=== PATIENT | male | born 1965 | race Caucasian/White ===

== ENCOUNTER 2020-04-07 21:35 | Inpatient (IN) ==
[2020-04-08] MEDS ORDERED: HYDROmorphone 2 MG/1 ML VIAL IV STA (00:32)
[2020-04-08] MEDS ORDERED: ONDANSETRON 4 MG/2 ML VIAL IV STA (00:32)
[2020-04-08] MEDS ORDERED: SODIUM CHLORIDE 0.9% 500 ML IV STA (00:32)
[2020-04-08] MEDS ORDERED: PIPERACILLIN/TAZOBACTAM 3,375 MG in SODIUM CHLORIDE 0.9% 100 ML IV STA (00:32)
[2020-04-08 01:27] LABS: Basophils # 0.1 10*3/uL (0.0-0.2); Basophils % 0.8 % (0.0-0.8); Eosinophils # 0.1 10*3/uL (0.0-0.87); Eosinophils % 1.1 % (0.00-10.9); Hematocrit 34.9 VOL% (42.0-52.0); Hemoglobin 12.7 GM/DL (14.0-18.0); Immature Granulocytes % 4.7 %; Immature Granulocytes Absolute 0.61 #; Lymphocytes # 1.7 10*3/uL (1.4-4.0); Lymphocytes % 13.4 % (21.2-54.2); Mean Corpuscular HGB Conc 36.4 GM/DL (32-36); Mean Corpuscular Volume 83.3 FL (87-102); Mean Platelet Volume 9.1 FL (9.6-12.0); Platelet Count 179 T/CUMM (130-400); Red Blood Count 4.19 MC/CUMM (3.8-5.5); White Blood Count 12.9 T/CUMM (4-12)
[2020-04-08 01:46] LABS: Albumin 2.6 G/DL (3.4-5.0); Bilirubin,Total 1.2 MG/DL (0.2-1.0); Calcium 9.3 MG/DL (8.5-10.1); Osmolality,Calculated 282.1 MOS/KG (273-304); Total Protein 7.2 G/DL (6.4-8.3)
[2020-04-08] MEDS ORDERED: INSULIN REGULAR 100 UNIT/ML SUBCUT STA (01:52)
[2020-04-08 02:59] LABS: Band Neutrophils 6 % (0-10); Eosinophils 1 % (0-10); Lymphocytes 15 % (20-55); Polychromasia Few; Reactive Lymphocytes Few; Segmented Neutrophils 71 % (50-85); Total Cells Counted 100
[2020-04-08 03:00] LABS: Platelet Estimate Normal
[2020-04-08] MEDS ORDERED: ONDANSETRON 4 MG/2 ML VIAL IV PRN ×2 (05:15→09:00)
[2020-04-08] MEDS ORDERED: ACETAMINOPHEN 325 MG TABLET PO PRN (05:15)
[2020-04-08] MEDS ORDERED: GLUCAGON 1 MG VIAL IM PRN (05:15)
[2020-04-08] MEDS ORDERED: PROMETHAZINE 25 MG/1 ML VIAL IM PRN (05:15)
[2020-04-08] MEDS ORDERED: DEXTROSE 50% 25 GM/50 ML VIAL IV PRN (05:15)
[2020-04-08] MEDS: SODIUM CHLORIDE 0.9% 1,000 ML IV SCH ×3 (05:45→22:38)
[2020-04-08] MEDS ORDERED: ROPIVACAINE 0.5% 30 ML VIAL ONE (07:27)
[2020-04-08] MEDS ORDERED: TOBRAMYCIN 80 MG/2 ML VIAL ONE (08:05)
[2020-04-08] MEDS ORDERED: propofoL 200 MG/20 ML VIAL IV ONE (08:43)
[2020-04-08] MEDS ORDERED: LIDOCAINE 2% 5 ML VIAL ONE (08:43)
[2020-04-08] MEDS ORDERED: SEVOFLURANE 1 UNIT/15 MINUTE INH ONE (08:43)
[2020-04-08] MEDS ORDERED: SUCCINYLCHOLINE 200 MG/10 ML VIAL ONE (08:44)
[2020-04-08] MEDS ORDERED: ONDANSETRON 4 MG/2 ML VIAL ONE (08:44)
[2020-04-08] MEDS ORDERED: MIDAZOLAM 2 MG/2 ML VIAL ONE (08:44)
[2020-04-08] MEDS ORDERED: fentaNYL 100 MCG/2 ML VIAL ONE (08:44)
[2020-04-08] MEDS ORDERED: HYDROmorphone 2 MG/1 ML VIAL IV PRN (09:00)
[2020-04-08] MEDS ORDERED: HYDROmorphone 2 MG/1 ML VIAL ONE (09:02)
[2020-04-08] MEDS: VANCOMYCIN INJ 1,000 MG in SODIUM CHLORIDE 0.9% 250 ML IV SCH ×2 (10:18→21:56)
[2020-04-08] MEDS: INSULIN REGULAR 100 UNIT/ML SUBCUT SCH ×3 (11:32→17:47)
[2020-04-08] MEDS: PIPERACILLIN/TAZOBACTAM 3,375 MG in SODIUM CHLORIDE 0.9% 100 ML IV SCH ×2 (11:41→17:47)
[2020-04-08 15:11] LABS: Bilirubin,Urine Negative (Negative); Blood, Urine Negative (Negative); Glucose,Urine (UA) >=500 mg/dL (Negative); Ketones,Urine 5 mg/dL (Negative); Mucus,Urine Occasional /LPF (Occasional); Nitrite,Urine Negative (Negative); Protein,Urine Negative; Squamous Epithelial Cell,Urine Occasional /HPF (0-10); Urine Appearance CLEAR (Clear); Urine Color Yellow (Yellow); Urine Specific Gravity 1.033 (1.001-1.035); WBC,Urine 2 /HPF (0-6)
[2020-04-08 15:21] LABS: RBC,Urine 1 /HPF (0-4)
[2020-04-08] MEDS: glyBURIDE 2.5 MG TABLET PO SCH (17:47)
[2020-04-09] MEDS: INSULIN REGULAR 100 UNIT/ML SUBCUT SCH ×5 (00:23→23:43)
[2020-04-09] MEDS: PIPERACILLIN/TAZOBACTAM 3,375 MG in SODIUM CHLORIDE 0.9% 100 ML IV SCH ×3 (01:14→18:12)
[2020-04-09] MEDS: SODIUM CHLORIDE 0.9% 1,000 ML IV SCH ×3 (05:52→18:11)
[2020-04-09 06:43] LABS: Basophils % 0.1 % (0.0-0.8); Eosinophils # 0.1 10*3/uL (0.0-0.87); Eosinophils % 0.8 % (0.00-10.9); Hematocrit 35.3 VOL% (42.0-52.0); Hemoglobin 12.5 GM/DL (14.0-18.0); Immature Granulocytes % 4.9 %; Immature Granulocytes Absolute 0.69 #; Lymphocytes # 2.2 10*3/uL (1.4-4.0); Lymphocytes % 15.2 % (21.2-54.2); Mean Corpuscular HGB Conc 35.4 GM/DL (32-36); Mean Corpuscular Volume 84.4 FL (87-102); Mean Platelet Volume 8.7 FL (9.6-12.0); Monocytes % 8.5 % (1.7-12.7); Neutrophils % 70.5 % (38.7-73.9); Platelet Count 200 T/CUMM (130-400); Red Blood Count 4.18 MC/CUMM (3.8-5.5); Red Cell Distribution Width 13.2 % (9.3-17.3); White Blood Count 14.2 T/CUMM (4-12)
[2020-04-09 07:02] LABS: Albumin 2.2 G/DL (3.4-5.0); Bilirubin,Total 1.2 MG/DL (0.2-1.0); Osmolality,Calculated 267.2 MOS/KG (273-304); Total Protein 6.8 G/DL (6.4-8.3)
[2020-04-09 07:08] LABS: Band Neutrophils 1 % (0-10); Eosinophils 1 % (0-10); Hypochromasia 1+; Lymphocytes 8 % (20-55); Microcytosis 1+; Platelet Estimate Adequate; Segmented Neutrophils 81 % (50-85); Total Cells Counted 100
[2020-04-09] MEDS ORDERED: POTASSIUM CHLORIDE 20 MEQ TABLET PO ONE (07:20)
[2020-04-09] MEDS: HYDROmorphone 2 MG/1 ML VIAL IV PRN ×3 (09:26→23:47)
[2020-04-09] MEDS: VANCOMYCIN INJ 1,000 MG in SODIUM CHLORIDE 0.9% 250 ML IV SCH ×2 (09:26→21:45)
[2020-04-09] MEDS: glyBURIDE 2.5 MG TABLET PO SCH ×2 (09:26→18:12)
[2020-04-09] MEDS ORDERED: MEPERIDINE 25 MG/1 ML VIAL IM PRN (11:26)
[2020-04-10] MEDS: SODIUM CHLORIDE 0.9% 1,000 ML IV SCH ×2 (01:24→21:45)
[2020-04-10] MEDS: PIPERACILLIN/TAZOBACTAM 3,375 MG in SODIUM CHLORIDE 0.9% 100 ML IV SCH ×3 (01:48→17:54)
[2020-04-10] MEDS: HYDROmorphone 2 MG/1 ML VIAL IV PRN (05:23)
[2020-04-10] MEDS: INSULIN REGULAR 100 UNIT/ML SUBCUT SCH ×3 (06:49→17:43)
[2020-04-10 08:22] LABS: Basophils % 0.3 % (0.0-0.8); Eosinophils # 0.2 10*3/uL (0.0-0.87); Eosinophils % 1.5 % (0.00-10.9); Hematocrit 34.9 VOL% (42.0-52.0); Hemoglobin 12.4 GM/DL (14.0-18.0); Immature Granulocytes % 4.8 %; Immature Granulocytes Absolute 0.54 #; Lymphocytes # 1.9 10*3/uL (1.4-4.0); Lymphocytes % 17.2 % (21.2-54.2); Mean Corpuscular HGB Conc 35.5 GM/DL (32-36); Mean Corpuscular Volume 84.9 FL (87-102); Mean Platelet Volume 8.5 FL (9.6-12.0); Monocytes % 7.1 % (1.7-12.7); Neutrophils % 69.1 % (38.7-73.9); Platelet Count 204 T/CUMM (130-400); Red Blood Count 4.11 MC/CUMM (3.8-5.5); Red Cell Distribution Width 13.5 % (9.3-17.3); White Blood Count 11.2 T/CUMM (4-12)
[2020-04-10 08:41] LABS: Band Neutrophils 1 % (0-10); Eosinophils 2 % (0-10); Hypochromasia 1+; Lymphocytes 21 % (20-55); Platelet Estimate Adequate; Segmented Neutrophils 72 % (50-85); Total Cells Counted 100
[2020-04-10 08:42] LABS: Microcytosis Slight
[2020-04-10] MEDS ORDERED: MAGNESIUM HYDROXIDE SUSP 30 ML UDCUP PO PRN (08:44)
[2020-04-10] MEDS: glyBURIDE 2.5 MG TABLET PO SCH ×2 (08:46→17:43)
[2020-04-10 08:47] LABS: Calcium 8.4 MG/DL (8.5-10.1); Osmolality,Calculated 272.8 MOS/KG (273-304)
[2020-04-10] MEDS: VANCOMYCIN INJ 1,000 MG in SODIUM CHLORIDE 0.9% 250 ML IV SCH ×3 (12:56→21:45)
[2020-04-10] MEDS: oxyCODONE/ACETAMINOPHEN 5-325 MG TABLET PO PRN ×2 (20:32→20:34)
[2020-04-11] MEDS: INSULIN REGULAR 100 UNIT/ML SUBCUT SCH ×4 (00:25→17:10)
[2020-04-11] MEDS: PIPERACILLIN/TAZOBACTAM 3,375 MG in SODIUM CHLORIDE 0.9% 100 ML IV SCH ×2 (01:05→09:23)
[2020-04-11] MEDS: VANCOMYCIN INJ 1,000 MG in SODIUM CHLORIDE 0.9% 250 ML IV SCH ×2 (05:50→21:19)
[2020-04-11 06:33] LABS: Basophils # 0.1 10*3/uL (0.0-0.2); Basophils % 0.7 % (0.0-0.8); Eosinophils # 0.2 10*3/uL (0.0-0.87); Eosinophils % 1.5 % (0.00-10.9); Hematocrit 37.7 VOL% (42.0-52.0); Hemoglobin 13.6 GM/DL (14.0-18.0); Immature Granulocytes % 4.2 %; Immature Granulocytes Absolute 0.47 #; Lymphocytes # 1.8 10*3/uL (1.4-4.0); Lymphocytes % 16.2 % (21.2-54.2); Mean Corpuscular HGB Conc 36.1 GM/DL (32-36); Mean Corpuscular Volume 83.6 FL (87-102); Mean Platelet Volume 8.2 FL (9.6-12.0); Monocytes % 7.4 % (1.7-12.7); Platelet Count 220 T/CUMM (130-400); Red Blood Count 4.51 MC/CUMM (3.8-5.5); Red Cell Distribution Width 13.2 % (9.3-17.3); White Blood Count 11.1 T/CUMM (4-12)
[2020-04-11 07:23] LABS: Albumin 2.3 G/DL (3.4-5.0); Bilirubin,Total 0.7 MG/DL (0.2-1.0); Calcium 8.9 MG/DL (8.5-10.1); Total Protein 7.7 G/DL (6.4-8.3)
[2020-04-11] MEDS: glyBURIDE 2.5 MG TABLET PO SCH ×2 (09:23→17:05)
[2020-04-11] MEDS: oxyCODONE/ACETAMINOPHEN 5-325 MG TABLET PO PRN (15:24)
[2020-04-12] MEDS: INSULIN REGULAR 100 UNIT/ML SUBCUT SCH ×4 (00:50→16:30)
[2020-04-12] MEDS ORDERED: VANCOMYCIN INJ 1,000 MG in SODIUM CHLORIDE 0.9% 250 ML IV SCH (06:00)
[2020-04-12 06:59] LABS: Basophils # 0.1 10*3/uL (0.0-0.2); Basophils % 0.7 % (0.0-0.8); Eosinophils # 0.2 10*3/uL (0.0-0.87); Eosinophils % 1.7 % (0.00-10.9); Hematocrit 41.2 VOL% (42.0-52.0); Hemoglobin 14.6 GM/DL (14.0-18.0); Immature Granulocytes % 2.3 %; Immature Granulocytes Absolute 0.27 #; Lymphocytes # 2.2 10*3/uL (1.4-4.0); Lymphocytes % 18.5 % (21.2-54.2); Mean Corpuscular HGB Conc 35.4 GM/DL (32-36); Mean Corpuscular Volume 84.1 FL (87-102); Mean Platelet Volume 8.2 FL (9.6-12.0); Monocytes % 7.1 % (1.7-12.7); Neutrophils % 69.7 % (38.7-73.9); Platelet Count 279 T/CUMM (130-400); Red Cell Distribution Width 13.2 % (9.3-17.3); White Blood Count 11.8 T/CUMM (4-12)
[2020-04-12 07:24] LABS: Albumin 2.4 G/DL (3.4-5.0); Calcium 9.1 MG/DL (8.5-10.1); Osmolality,Calculated 272.1 MOS/KG (273-304); Total Protein 8.5 G/DL (6.4-8.3)
[2020-04-12] MEDS: VANCOMYCIN INJ 1,000 MG in SODIUM CHLORIDE 0.9% 250 ML IV SCH (10:33)
[2020-04-12] MEDS: glyBURIDE 2.5 MG TABLET PO SCH ×2 (10:33→16:30)
[2020-04-12] MEDS ORDERED: CLINDAMYCIN INJ 600 MG in PREMIX 1 EACH IV ONE (12:52)
[2020-04-12] MEDS ORDERED: BISACODYL 10 MG SUPP RECTAL PRN (12:56)
[2020-04-12] MEDS: POLYETHYLENE GLYCOL POWDER 17 GM PACK PO SCH (14:47)
[2020-04-12] MEDS: SULFAMETHOX/TRIMETHOPRIM 800-160 MG TABLET PO SCH ×2 (14:47→20:58)
[2020-04-13] MEDS: INSULIN REGULAR 100 UNIT/ML SUBCUT SCH ×4 (01:56→17:41)
[2020-04-13] MEDS ORDERED: CLINDAMYCIN INJ 600 MG in PREMIX 1 EACH IV ONE (06:30)
[2020-04-13 07:07] LABS: Basophils # 0.1 10*3/uL (0.0-0.2); Basophils % 0.7 % (0.0-0.8); Eosinophils # 0.2 10*3/uL (0.0-0.87); Hemoglobin 15.4 GM/DL (14.0-18.0); Immature Granulocytes Absolute 0.24 #; Lymphocytes # 2.8 10*3/uL (1.4-4.0); Lymphocytes % 23.3 % (21.2-54.2); Mean Corpuscular HGB Conc 35.8 GM/DL (32-36); Mean Corpuscular Volume 83.7 FL (87-102); Mean Platelet Volume 8.4 FL (9.6-12.0); Monocytes % 6.6 % (1.7-12.7); Neutrophils % 65.4 % (38.7-73.9); Platelet Count 291 T/CUMM (130-400); Red Blood Count 5.14 MC/CUMM (3.8-5.5); Red Cell Distribution Width 13.2 % (9.3-17.3); White Blood Count 12.2 T/CUMM (4-12)
[2020-04-13 07:20] LABS: Albumin 2.5 G/DL (3.4-5.0); Bilirubin,Total 0.8 MG/DL (0.2-1.0); Calcium 9.6 MG/DL (8.5-10.1); Osmolality,Calculated 270.2 MOS/KG (273-304); Total Protein 8.7 G/DL (6.4-8.3)
[2020-04-13] MEDS ORDERED: glyBURIDE 2.5 MG TABLET PO SCH (10:22)
[2020-04-13] MEDS: POLYETHYLENE GLYCOL POWDER 17 GM PACK PO SCH (10:30)
[2020-04-13] MEDS: glyBURIDE 2.5 MG TABLET PO SCH (10:31)
[2020-04-13] MEDS ORDERED: BACITRACIN OINT 0.9 GM PACK TOP ONE (10:44)
[2020-04-13] MEDS ORDERED: LIDOCAINE 2% 5 ML VIAL ONE (10:58)
[2020-04-13] MEDS ORDERED: propofoL 200 MG/20 ML VIAL IV ONE (10:58)
[2020-04-13] MEDS ORDERED: SEVOFLURANE 1 UNIT/15 MINUTE INH ONE (10:58)
[2020-04-13] MEDS ORDERED: MIDAZOLAM 2 MG/2 ML VIAL ONE (10:59)
[2020-04-13] MEDS ORDERED: SUCCINYLCHOLINE 200 MG/10 ML VIAL ONE (10:59)
[2020-04-13] MEDS ORDERED: ONDANSETRON 4 MG/2 ML VIAL ONE (10:59)
[2020-04-13] MEDS ORDERED: fentaNYL 100 MCG/2 ML VIAL ONE (10:59)
[2020-04-13] MEDS: SULFAMETHOX/TRIMETHOPRIM 800-160 MG TABLET PO SCH (12:10)
[2020-04-13] MEDS: oxyCODONE/ACETAMINOPHEN 5-325 MG TABLET PO PRN (12:10)
[2020-04-13] MEDS ORDERED: GLUCAGON 1 MG VIAL IM PRN (12:34)
[2020-04-13] MEDS ORDERED: DEXTROSE 50% 25 GM/50 ML VIAL IV PRN (12:34)
[2020-04-13 15:55] VITALS: BP 111/84
== END 2020-04-13 18:45 | disposition home or self-care (01) | DRG 718 ==
LOC: N.EDINP 21:35 → N.ED 21:35 → N.3E 04-08 07:08
PROVIDERS: ADMIT Urology; ATTEND Urology